=== PATIENT | male | born 1945 | race Caucasian/White ===

== ENCOUNTER → 2016-12-09 | Outpatient (CLI) | payer MEDICARE ==
[2016-12-09 14:02] LABS: CH 31.2; HCT 43.7 % (39.0-53.0); HDW 2.87; HGB 14.5 gm/dL (13.0-17.5); MCH 30.6 pg (25.0-35.0); MCHC 33.1 g/dL (31.0-37.0); MCV 92.4 fL (80.0-100.0); Mean Platelet Volume 7.3; RBC 4.73 m/uL (4.30-5.90); RDW 12.9 % (11.5-15.5)
[2016-12-09 14:07] LABS: Partial Thromboplastin Time 24.1 sec (22.0-30.0); Prothrombin Time 9.8 sec (9.0-12.0)
[2016-12-09 14:13] LABS: Appearance,Urine Clear (Clear); Bilirubin,Urine Negative (Negative); Glucose,Urine (UA) Negative (Negative); Ketones,Urine Negative (Negative); Leukocyte Esterase,Urine Negative (Negative); Nitrite,Urine Negative (Negative); PH, Urine 6.5 (5.0-8.0); Protein,Urine Negative (Negative); Specific Gravity,Urine 1.009 (1.001-1.035); UA Billing (MACRO vs. MICRO) CHEM; Urobilinogen,Urine <2.0 mg/dL (<2.0)
[2016-12-09 14:29] LABS: ALT 37 U/L (21-72); AST 23 U/L (17-59); Alkaline Phosphatase 68 U/L (38-126); Anion Gap 12 mmol/L; Blood Urea Nitrogen 16 mg/dL (9-20); Calcium 9.6 mg/dL (8.4-10.2); Carbon Dioxide 26 mmol/L (22-30); Chloride 103 mmol/L (98-107); Glucose 86 mg/dL (74-99); Non-African American GFR(MDRD) >60 (>60 ml/min/1.73 sqM); Potassium 4.6 mmol/L (3.5-5.1); Sodium 141 mmol/L (137-145); Total Bilirubin 0.7 mg/dL (0.2-1.3); Total Protein 7.3 g/dL (6.3-8.2)
== END | disposition home or self-care (01) ==
LOC: LABPAT 12:51
PROVIDERS: ATTEND Orthopaedic Surgery
DX: Z01.810 Encounter for preprocedural cardiovascular examination (principal); Z01.812 Encounter for preprocedural laboratory examination
CPT/HCPCS: 80053; 81003; 85027; 85610; 85730; 87070

== ENCOUNTER 2017-12-07 06:05 | Day surgery (SDC) | payer MEDICARE ==
[2017-12-05 09:37] VITALS: BMI 29.8
[~2017-12-07 06:05] MED LIST: DEXAMETHASONE SOD PHOSPHATE 10 MG/ML 1 ML VIAL IV ONE; FAMOTIDINE 20 MG/2 ML VIAL IV ONE; LIDOCAINE 1% 20 ML VIAL (10MG/ML) FOR IV START INTRADERMA PRN; MIDAZOLAM 2 MG/2 ML VIAL IV PRN; ONDANSETRON 4 MG/2 ML VIAL IVP ONE; ceFAZolin 1,000 MG in EMPTY BAG 1 BAG IV ONE; fentaNYL (PF) 50 MCG/ML 2 ML AMP IV PRN
[2017-12-07] MEDS ORDERED: LACTATED RINGERS 1,000 ML IV SCH (06:15)
[2017-12-07] MEDS: OXYMETAZOLINE 0.05% NASL SPRAY 1 SPRAY BOTTLE NASAL ONE ×5 (06:36→07:05)
[2017-12-07 06:40] VITALS: TEMP 97.6
[2017-12-07 07:33] LABS: Anion Gap 9 mmol/L; Blood Urea Nitrogen 12 mg/dL (9-20); Calcium 9.4 mg/dL (8.4-10.2); Carbon Dioxide 28 mmol/L (22-30); Chloride 107 mmol/L (98-107); Glucose 110 mg/dL (74-99); Potassium 4.2 mmol/L (3.5-5.1); Sodium 144 mmol/L (137-145)
[2017-12-07] MEDS ORDERED: fentaNYL (PF) 50 MCG/ML 2 ML AMP ONE (07:36)
[2017-12-07] MEDS ORDERED: ePHEDrine SULFATE/0.9% NACL/PF 50 MG/5 ML SYRINGE IV ONE (07:36)
[2017-12-07] MEDS ORDERED: MIDAZOLAM 2 MG/2 ML VIAL ONE (07:36)
[2017-12-07] MEDS ORDERED: PROPOFOL 10 MG/ML 20 ML VIAL IV ONE (07:36)
[2017-12-07] MEDS ORDERED: ceFAZolin 1,000 MG VIAL ONE (07:36)
[2017-12-07] MEDS ORDERED: DEXAMETHASONE SOD PHOS (MDV) 100 MG/10 ML VIAL ONE (07:36)
[2017-12-07] MEDS ORDERED: LIDOCAINE 1% INJ 10MG/ML (20 ML MDV) ONE (07:36)
[2017-12-07] MEDS ORDERED: SUCCINYLCHOLINE CHLORIDE 100 MG/5 ML SYR IV ONE (07:36)
[2017-12-07] MEDS ORDERED: BUPIVACAIN-EPI 0.5%-1:200,000 30 ML VIAL SQ ONE ×2 (08:00)
[2017-12-07] MEDS ORDERED: EPINEPHrine 1 MG/ML (MDV) 30 ML VIAL TOPICAL ONE (08:00)
[2017-12-07] MEDS ORDERED: LIDOCAINE 1%-EPI 1:100,000 20 ML VIAL SQ ONE ×2 (08:00)
[2017-12-07] MEDS ORDERED: FLUORESCEIN STRIPS 1 MG STRIP MISCELLANE ONE (08:00)
--- NOTE | 2017-12-07 09:37 | P.OP ---
Date of Procedure: 12/07/17 Preoperative Diagnosis: Deviated nasal septum Bilateral hypertrophy of inferior nasal turbinates with obstruction Chronic pansinusitis Sinonasal polyposis Postoperative Diagnosis: Same Procedure(s) Performed: Septoplasty Bilateral submucosal resection of the inferior turbinates with outfracturing compression Bilateral functional endoscopic sinus surgery of all sinuses with polypectomy and intranasal polypectomy Anesthesia: MCKINLEY Surgeon: Yesenia Lowe Estimated Blood Loss (ml): 40 Pathology: other (Sinonasal) Condition: stable Disposition: PACU Indications for Procedure: This patient presented to the office with multiple and long-standing sinonasal symptoms. He has chronic pansinusitis with polyps and left septal deviation. He has complaints of discolored postnasal drainage, total anosmia, facial pain and pressure, discolored drainage, etc. etc. He has failed medical therapy and is yellow drainage is persistent. His problems have been going on for years and has failed medical therapy. CAT scan evaluation confirms chronic pansinusitis. This is a medical failure and after long discussion we decided to proceed forward with this septoplasty turbinate surgery and bilateral functional endoscopic sinus surgery and polypectomy. All risks, benefits, and alternative therapies were discussed. Consent was obtained and all questions were answered. Operative Findings: Massive intranasal edema with a left septal deviation and sinonasal polyposis throughout all sinuses with yesenia pus and thick and viscous secretions removed. All sinuses were infected and had polyposis. Description of Procedure: This patient was taken to the operative room and placed in the supine position. A general inhalation anesthetic was administered to the patient by the department of anesthesia with a functioning IV line in place. The patient was monitored throughout the entire case by the department of anesthesia. The eyes were taped shut for protection. The patient was placed in a slight reverse Trendelenburg position. The patient had previously utilize Afrin nasal spray preoperatively. The nose was evaluated and the septum lateral nasal wall and inferior turbinates were injected with lidocaine 1% with epinephrine 1 100,000 bilaterally. Approximately 10 minutes were allowed wait for full vasoconstrictive effects to take place. At this point a caudal incision was made over the caudal portion of the left septum down to the mucoperichondrium. A mucoperichondrial flap was elevated on the left side and dissection was carried with use of tunnels posteriorly. We then made a crossover incision through the cartilage to the contralateral side and for the mucoperichondrial flap development was performed to the extent of visualization on the contralateral side. After the cartilage was freed with use of several crosshatching incisions and removal of some redundant strips of septal cartilage, the septum was straightened and placed back in the midline. The septum was sutured fixated to the ovarian groove. Excellent straightening occurred and the septum was visibly straight. Incision was closed with a 40 rapid Vicryl. We utilized a running nonlocking fashion for closure of the incision. A quilting stitch was used to reapproximate the septal flaps with use of a 40 rapid Vicryl. We then entered the nose with a 0 and 30 Anderson pacheco endoscope. Previous to this we did inject the lateral nasal wall and middle turbinate and uncinate process with lidocaine 1% with epinephrine 1 100,000. Approximately 10 minutes were allowed wait for full vasoconstrictive effects to take place. Intranasal polyps were noted. They were noted bilaterally. The intranasal polyps were removed with use of a microdebrider. With use of a microdebrider and a pediatric backbiter, we took down the uncinate process bilaterally. We then opened the maxillary sinuses bilaterally. We utilized a microdebrider for this and entered the maxillary sinuses and removed diseased tissue and polypoid tissue. This was done bilaterally. After the maxillary sinuses were opened and the diseased tissue and polyps were removed we entered the ethmoid bulla and with use of a microdebrider and up-biting Deon, we remove the anterior septations and remove diseased tissue from the anterior ethmoids with direct visualization. We then followed the fovea frontalis through the basal lamella and into the posterior ethmoid air cells and did a total ethmoidectomy with removal of polypoid material. Once the ethmoids cells were all taken down we then entered the sphenoid sinus medially and inferiorly underneath the inferior attachment of the superior turbinate. The sphenoid sinus was opened entered and diseased tissue and polyps were removed bilaterally. This was done with a microdebrider and Blakesley. We then entered the frontal sinuses with a giraffe and up-biting Blakesley entered on the agar nasi cells. We open the frontal sinuses and removed sinus tissue and polypoid tissue that was diseased. We explored the frontal sinuses bilaterally. To summarize all sinuses were open all sinuses were explored and we remove diseased tissue and polyps from the sphenoid maxillary and frontal sinuses. Polyps were removed from the nose. Ethmoid sinuses were opened totally. Surgicel powder was inserted and minimal bleeding was encountered. We reinspected the skull base there is no signs of any orbital penetration or signs of any intracranial penetration. The sugical site was reinspected after the nasal pore was placed and no bleeding was seen. Attention was then paid to the inferior turbinates. The bilateral inferior turbinates were hypertrophic and obstructive. We entered the anterior portion of the inferior turbinates with use of a microdebrider. We remove bone and submucosal elements with use of a microdebrider bilaterally. The inferior turbinates underwent a submucosal resection with removal of submucosal tissue and bone. We obtained a much better and normal in size for breathing. The inferior turbinates were then outfractured and compressed with a [employer] nasal elevator. Excellent airway was obtained and was symmetric bilaterally. No bleeding was encountered. Intranasal splints were inserted and fixated at the end of the case. We utilized Daley nasal splints. There will be removed and the patient returns to the office.
[2017-12-07] MEDS ORDERED: LACTATED RINGERS 1,000 ML IV ONE ×2 (09:45)
[2017-12-07] MEDS ORDERED: hydrALAZINE HCL 20 MG/ML 1 ML VIAL IVP ONE (09:50)
[2017-12-07] MEDS ORDERED: HYDROcodone/APAP 5-325MG 1 EACH TAB PO ONE (11:04)
[2017-12-07 12:43] VITALS: BP 157/78; PULSE 73; RESP 20
== END 2017-12-07 12:46 | disposition home or self-care (01) ==
LOC: OR 06:05
PROVIDERS: ATTEND Otolaryngology
DX: J32.4 Chronic pansinusitis (principal); J34.2 Deviated nasal septum; J34.3 Hypertrophy of nasal turbinates; J33.8 Other polyp of sinus; J43.9 Emphysema, unspecified; Z85.46 Personal history of malignant neoplasm of prostate; I10 Essential (primary) hypertension; I42.2 Other hypertrophic cardiomyopathy; E11.9 Type 2 diabetes mellitus without complications; Z79.82 Long term (current) use of aspirin; Z79.2 Long term (current) use of antibiotics; Z79.891 Long term (current) use of opiate analgesic; Z79.51 Long term (current) use of inhaled steroids; Z79.52 Long term (current) use of systemic steroids; Z79.899 Other long term (current) drug therapy; Z88.8 Allergy status to other drugs, medicaments and biological substances
CPT/HCPCS: 88305; 80048; 88300; 30520; 31267; 31253; 31259; 30140; J0171; J2250; J0360; J2405; J0690; J2001; J3010; J1100; J0330; J2704

== ENCOUNTER → 2024-04-05 | Outpatient (CLI) | payer MEDICARE ==
[2024-04-05 12:43] LABS: Partial Thromboplastin Time 22.9 sec (22.0-30.0)
[2024-04-05 15:32] LABS: ALT 13 U/L (10-49); AST 16 U/L (14-35); Albumin 4.1 g/dL (3.8-4.9); Albumin/Globulin Ratio 1.58 Ratio (1.60-3.17); Alkaline Phosphatase 70 U/L (41-126); BUN/Creat Ratio 16.88 Ratio (12.00-20.00); Blood Urea Nitrogen 13.5 mg/dL (9.0-27.0); Calcium 9.5 mg/dL (8.7-10.3); Carbon Dioxide 26.9 mmol/L (21.6-31.8); Chloride 103 mmol/L (96-109); Globulin 2.6 g/dL (1.6-3.3); Glucose 89 mg/dL (70-110); Potassium 4.1 mmol/L (3.5-5.5); Sodium 141 mmol/L (135-145); Total Bilirubin 0.7 mg/dL (0.3-1.2); Total Protein 6.7 g/dL (6.2-8.2)
[2024-04-05 16:10] LABS: INR 0.9 (<1.2); Prothrombin Time 10.1 sec (10.0-12.5)
[2024-04-05 16:55] LABS: HCT 38.4 % (39.6-50.0); HGB 12.8 g/dL (13.0-17.0); MCH 30.5 pg (27.0-32.0); MCHC 33.3 g/dL (32.0-37.0); MCV 91.4 FL (80.0-97.0); Mean Platelet Volume 11.1 FL (9.5-12.2); NRBC Per 100 WBC 0 X 10*3/uL (0.00-0.01); Platelet Count 200 X 10*3/uL (140-440); RDW 12.5 % (11.5-14.5)
== END | disposition home or self-care (01) ==
LOC: LABPAT 11:35
PROVIDERS: ATTEND Orthopaedic Surgery
DX: Z01.818 Encounter for other preprocedural examination (principal); Z22.322 Carrier or suspected carrier of Methicillin resistant Staphylococcus aureus; M16.11 Unilateral primary osteoarthritis, right hip
CPT/HCPCS: 80053; 85027; 85610; 85730; 86850; 86900; 86901; 87070; 93005

== ENCOUNTER 2024-04-15 05:37 | Day surgery (SDC) | payer MEDICARE ==
[~2024-04-15 05:37] MED LIST changes: -DEXAMETHASONE SOD PHOSPHATE 10 MG/ML 1 ML VIAL IV ONE; -FAMOTIDINE 20 MG/2 ML VIAL IV ONE; -LIDOCAINE 1% 20 ML VIAL (10MG/ML) FOR IV START INTRADERMA PRN; -MIDAZOLAM 2 MG/2 ML VIAL IV PRN; -ONDANSETRON 4 MG/2 ML VIAL IVP ONE; +TRANEXAMIC 1,000 MG/100ML-NACL 1,000 MG in SALINE 1 100ML.BAG IVPB PRN; -ceFAZolin 1,000 MG in EMPTY BAG 1 BAG IV ONE; -fentaNYL (PF) 50 MCG/ML 2 ML AMP IV PRN
[2024-04-15] MEDS: IV FLUID CONTINUATION 1,000 ML IV ONE (05:58)
[2024-04-15 06:25] LABS: Glucose,Whole Blood 125 mg/dL (70-110)
[2024-04-15] MEDS: LACTATED RINGERS 1,000 ML IV SCH (06:32)
[2024-04-15] MEDS: ACETAMINOPHEN TAB 500 MG TAB PO PRN (06:32)
[2024-04-15] MEDS: GABAPENTIN 300 MG CAP PO PRN (06:32)
[2024-04-15] MEDS: MELOXICAM 7.5 MG TAB PO PRN (06:32)
[2024-04-15] MEDS: MIDAZOLAM 2 MG/2 ML VIAL IV PRN (06:34)
[2024-04-15] MEDS: ONDANSETRON 4 MG/2 ML VIAL IVP ONE (06:38)
[2024-04-15] MEDS ORDERED: fentaNYL (PF) 50 MCG/ML 2 ML AMP ONE (06:52)
[2024-04-15] MEDS ORDERED: PHENYLEPHRINE-0.9% NACL SYG 1,000 MCG/10 ML SYRINGE ONE (06:52)
[2024-04-15] MEDS ORDERED: ROPIVACAINE 5 MG/ML 30 ML VIAL ONE (06:52)
[2024-04-15] MEDS ORDERED: PROPOFOL 10 MG/ML 20 ML VIAL IV ONE (06:52)
[2024-04-15] MEDS ORDERED: MIDAZOLAM 2 MG/2 ML VIAL ONE (06:52)
[2024-04-15] MEDS: ceFAZolin 1,000 MG in SODIUM CHLORIDE 0.9% 1,000 ML IRRIGATION ONE (06:57)
--- NOTE | 2024-04-15 07:12 | P.ANPRN ---
Procedure Note - Anesthesia - Nerve Block Performed Right Gaetano Single Time Out Performed: Yes Date of Procedure: 04/15/24 Procedure Start Time: 06:33 Procedure Stop Time: 06:38 Location of Patient: PreOp Indication: Acute Post-Operative Pain, Analgesia, Requested by Surgeon Sedation Type: Sedate with meaningful contact maintained Position: Supine Catheter: None Needle Types: Pajunk Needle Gauge: 21 Ultrasound used to visualize needle placement: Yes Ultrasound used to observe medication spread: Yes Injectate: 0.5% Ropivacaine (see comment for volume) (Ropiv 20ml) Blood Aspirated: No Pain Paresthesia on Injection Noted: No Resistance on Injection: Normal Image Stored and Saved: Yes Events: Uneventful and Well Tolerated
[2024-04-15] MEDS: ROPIVACAINE 5 MG/ML 30 ML VIAL MISCELLANE ONE ×2 (07:40→08:18)
--- NOTE | 2024-04-15 08:26 | P.OP ---
Date of Procedure: 04/15/24 Preoperative Diagnosis: Severe osteoarthritis, right hip Postoperative Diagnosis: Severe osteoarthritis, right Procedure(s) Performed: Right total hip arthroplasty with a direct anterior approach Implants: [employer] Polarstem standard size 3 with a collar [employer] R3, 3 hole hemispherical acetabular shell, 58 mm [employer] Reflection 6.5 mm cancellus screws, 20 mm, 25 mm [employer] R3, XLPE 20 acetabular liner [employer]hew Oxinium femoral head 36 mm, +0 All components were press-fit. The articulation is Oxinium on polyethylene. Anesthesia: spinal Surgeon: Ivan Jaramillo Steel Engraver #1: Jaky Beltran Estimated Blood Loss (ml): 250 Pathology: none sent Condition: stable Disposition: PACU Indications for Procedure: After failure of conservative treatment we discussed the surgical and no nsurgical treatment options at length. Patient wishes to proceed with a total hip arthroplasty with a direct anterior approach. Complications specific to this procedure were discussed at length, including but not limited to infection, leg length discrepancy, dislocation, nerve injury, and fracture. Covid-19 was also discussed at length with the patient, and they are aware of the current policies and procedures. The patient was given the option of delaying surgery, but they elect to proceed knowing these risks. Patient is aware of all these complications and informed consent was obtained Operative Findings: The operative findings are consistent with severe osteoarthritis of the right hip Description of Procedure: The patient was seen and evaluated in the preoperative area and the consent was reviewed. The operative site was marked with a skin marker. The patient verified the procedure and operative site. A AUSTEN block was placed by anesthesia in the preoperative area. The patient was then brought to the operating room and given preoperative antibiotics intravenously. 1 g of Tranexamic acid was also given intravenously. A spinal anesthetic was administered by the anesthesia department. The patient was then placed on the Afton table with the bony prominences well-padded. The hip area was then prepped with a ChloraPrep solution and draped in the usual sterile fashion. A universal timeout was then performed, which confirmed the patient's name, surgical site, ALLERGIES, and procedure being performed on the consent. Next the incision site was located at 1 cm distal and 4 cm lateral to the anterior superior iliac spine. The skin and subcutaneous tissues were sharply incised. Incision was carefully dissected down to the fascia overlying the tensor fascia kenzie muscle. This fascia was then incised in line with the muscle fibers. Care was taken to stay laterally in order to avoid injuring the lateral femoral cutaneous nerve. Next, using blunt finger dissection, the tensor fascia kenzie muscle was dissected off its investing fascia. The muscle was then carefully retracted laterally with a cobra retractor over the lateral neck of the femur. Next, the circumflex vessels were identified and cauterized using the Aquamantis device. The anterior hip capsule was then exposed. The capsule was then opened and an inverted T fashion. The retractors were then placed intracapsularly. The retractors were maintained intracapsular throughout the procedure. The proximal femur was then visualized. Fluoroscopic x-rays were then taken in order to evaluate the preoperative leg lengths. A small amount of traction was placed on the leg. The femoral neck was then osteotomized at the appropriate level above the lesser trochanter. A small wedge of bone was then removed from the remaining femoral head. Next, using a corkscrew the femoral head was removed from the acetabulum. On gross visual inspection, the femoral head had complete loss of articular cartilage and multiple periarticular osteophytes. The femoral head was then measured. Attention was then turned to the acetabulum. The acetabulum was exposed and any remaining labrum was excised. Sequential reaming of the acetabulum was performed using fluoroscopic guidance until there was a good bed of bleeding cancellus bone. When the appropriate size was reached, a trial was then placed. The position and fit of the trial was checked with fluoroscopy. The trial was then removed. Then, using fluoroscopic guidance, the final implant was impacted at 20 of anteversion and 40 of abduction, and fully seated in the acetabulum. 2 screws were then placed in the acetabulum. Again fluoroscopy was used to check position of the screws. Next, the liner was then impacted, with a 20 elevated liner located in the anterior superior quadrant. Component locking was confirmed. Attention was then directed to the femur. With the aid of the Afton table, the femur was externally rotated to approximately 130, extended, and adducted under the opposite leg. A side hook was then placed under the proximal femur, and the side hook elevator was used to elevate the proximal femur while releasing the capsule. Retractors were then placed. A capsular release was performed, as well as a release of the conjoined tendon, which afforded excellent visualization of the proximal femur. Next, a box osteotome was used to lateralize the proximal femur. A handkerchief sample clerk was then used to locate the femoral canal. Sequential broaching was then performed with appropriate size which afforded excellent fixation in the proximal femur. A trial was then placed with appropriate head and neck, and the hip was gently reduced with the aid of the Afton table. Fluoroscopy was then used to check position of the components, as well as to evaluate the leg lengths and offset. The leg lengths and offset were measured as closely as possible to ensure stability of the hip. The hip was then gently dislocated and the trials were then removed. Final implants were then impacted and the hip was again reduced. Final fluoroscopic x-rays confirmed that the components were in anatomic position. The leg lengths and offset were measured and were found to coincide with the trial measurements. The hip was also taken through range of motion, and found to be stable. The hip was then copiously irrigated with antibiotic solution with pulsatile lavage. The hip was then irrigated with Irrisept solution. The soft tissues were then injected with a ropivacaine solution. A second dose of 1 g of Tranexamic acid was also given intravenously. The fascia was then closed with 2-0 strata fix suture. The subcutaneous tissue was closed with 3-0 Vicryl. The subcuticular tissue was closed with 3-0 moncryl suture. The skin was then closed with Exofin skin glue. After the glue and dried, and Optifoam silver impregnated dressing was applied. The patient was t hen transferred to the recovery room in stable condition. The tmd teacher assistant UZIEL Cobian was required due to the complexity of surgery, and the need for skilled program support assistant for positioning, draping, exposure, retraction, and closure of the wound.
[2024-04-15] MEDS: LACTATED RINGERS 1,000 ML IV ONE (08:33)
--- NOTE | 2024-04-15 08:37 | XR ---
Intraoperative/procedural fluoroscopic services were provided for right total hip arthroplasty. Total fluoroscopy time is 25.5 seconds with a total of 4 submitted images to PACS. Total DAP 1.2833 Gycm2. Please see the operative note for further details. [facility], , 04/15/2024 8:35 AM
[2024-04-15] MEDS ORDERED: NALOXONE 0.4 MG/ML 1 ML VIAL IV PRN (08:51)
[2024-04-15] MEDS ORDERED: ONDANSETRON 4 MG/2 ML VIAL IVP PRN (08:51)
[2024-04-15] MEDS ORDERED: MAGNESIUM HYDROXIDE 2,400 MG/30 ML CUP PO PRN (08:51)
[2024-04-15] MEDS ORDERED: HYDROmorphone 0.5 MG/0.5 ML SYRINGE IVP PRN ×2 (08:51)
[2024-04-15] MEDS ORDERED: HYDROcodone/APAP 7.5-325MG 1 EACH TAB PO PRN (08:55)
--- NOTE | 2024-04-15 09:17 | XR ---
EXAMINATION TYPE: XR Hip Limited RT DATE OF EXAM: 04/15/2024 9:13 AM INDICATION: Patient age:Male; 78 years old; Reason for study: Status post hip surgery, assess surgical alignment; PHH. COMPARISON: Right hip fluoroscopic images of the same date TECHNIQUE: The right hip was examined in the single frontal projection. FINDINGS: Post surgical changes from total right hip arthroplasty. Hardware appears intact with appro priate alignment on this single frontal image. There is surrounding soft tissue gas and edema related to surgery. Vascular sclerosis demonstrated. No acute fracture or dislocation. IMPRESSION: Postsurgical changes from total right hip arthroplasty. Hardware appears intact with appropriate alig nment. [facility], , 04/15/2024 9:15 AM
[2024-04-15] MEDS: HYDROmorphone 0.5 MG/0.5 ML SYRINGE IVP PRN ×2 (10:24→13:22)
[2024-04-15] MEDS: SODIUM CHLORIDE 0.9% 1,000 ML IV SCH (13:21)
[2024-04-15] MEDS ORDERED: MONTELUKAST 10 MG TAB PO PRN (14:22)
[2024-04-15] MEDS ORDERED: FUROSEMIDE 40 MG TAB PO PRN (14:22)
[2024-04-15] MEDS ORDERED: ALBUTEROL NEBULIZED 2.5 MG/3 ML INHALATION PRN (14:22)
[2024-04-15] MEDS ORDERED: DEXTROSE 50% SYRINGE 50 ML IVP PRN ×2 (14:23)
[2024-04-15] MEDS: HYDROcodone/APAP 7.5-325MG 1 EACH TAB PO PRN (16:32)
[2024-04-15 16:44] LABS: Glucose,Whole Blood 160 mg/dL (70-110)
[2024-04-15] MEDS: INSULIN ASPART (NovoLOG) 100 UNIT/ML VIAL SQ SCH (17:28)
[2024-04-15] MEDS: metFORMIN 500 MG TAB PO SCH (17:28)
[2024-04-15] MEDS: NIFEdipine XL 30 MG TAB.ER.24 PO SCH (17:28)
[2024-04-15] MEDS: METOPROLOL TARTRATE 50 MG TAB PO SCH (20:35)
[2024-04-15] MEDS: ASPIRIN 325 MG TAB PO SCH (20:35)
[2024-04-15] MEDS: POTASSIUM CHLORIDE ER 10 MEQ TAB.ER.PRT PO SCH (20:36)
[2024-04-15] MEDS: CHOLECALCIFEROL 25 MCG (1000 IU) TABLET PO SCH (20:36)
[2024-04-15] MEDS: SENNOSIDES-DOCUSATE SODIUM 1 EACH TAB PO SCH (20:36)
[2024-04-15] MEDS: SYMBICORT 160-4.5 MCG INHALER INHALATION SCH (20:43)
[2024-04-15 21:02] LABS: Glucose,Whole Blood 175 mg/dL (70-110)
[2024-04-15] MEDS: BETAMETHASONE DIPROPIONATE 0.05% OINTMENT 45 GM TUBE TOPICAL SCH (21:47)
--- NOTE | 2024-04-16 01:00 | CONS ---
CONSULTATION REASON FOR CONSULTATION: Advice regarding COPD and CAD, and other medical issues, requested by Orthopedics. HISTORY OF PRESENT ILLNESS: This is a 78-year-old gentleman with a past history of COPD, diabetes mellitus, hypertension, hyperlipidemia, being followed by in the outpatient setting. The patient underwent right total hip joint arthroplasty. There is no history of any fever, rigors, or chill. No history of headache, loss or consciousness, or seizures at this time. PAST MEDICAL HISTORY: Reviewed include diabetes mellitus, COPD. Rest of the history and rest of the chart is also reviewed. HOME MEDICATIONS: Reviewed include Requip. Dose and rest of medications reviewed. ALLERGIES: Prednisone. FAMILY HISTORY: History of borderline diabetes. SOCIAL HISTORY: No history of smoking or alcohol. REVIEW OF SYSTEMS: Fourteen-point review of systems is negative except as mentioned earlier. PHYSICAL EXAMINATION: VITAL SIGNS: Pulse 58, blood pressure 148/70, respirations 16. HEENT: Conjunctivae normal. NECK: No JVD. CARDIOVASCULAR: S1, S2. RESPIRATIONS: Breath sounds diminished at the bases. No rhonchi. No crackles. ABDOMEN: Soft. LEGS: Status post surgery. NERVOUS SYSTEM: Nonfocal. LABORATORY DATA: Glucose 125. ASSESSMENT: 1. Status post right hip arthroplasty. 2. Diabetes mellitus, type 2. 3. Chronic obstructive pulmonary disease. 4. Coronary artery disease. 5. Hypertension. 6. Multiple medical issues. 7. History of hypertrophic cardiomyopathy. RECOMMENDATIONS AND DISCUSSION: This is a 78-year-old gentleman presented with multiple complex medical issues, we will monitor the patient closely. The patient is currently medically stable. Recommend to resume the home medications. Monitor blood sugars closely. DVT prophylaxis. Pain management. We will continue to monitor. Further recommendations to follow. MMODL / IJN: [id number] / MTDD
[2024-04-16 01:39] VITALS: RESP 18
[2024-04-16 06:20] LABS: Glucose,Whole Blood 143 mg/dL (70-110)
[2024-04-16 07:51] VITALS: BP 144/67; PULSE 74; TEMP 99.9
[2024-04-16] MEDS: ATORVASTATIN 10 MG TAB PO SCH (08:37)
[2024-04-16] MEDS: MAGNESIUM OXIDE 400 MG TAB PO SCH (08:37)
[2024-04-16] MEDS: FERROUS SULFATE 325 MG TAB PO SCH (08:37)
[2024-04-16] MEDS: LOSARTAN-HCTZ 50-12.5 MG 1 EACH TAB PO SCH (08:38)
[2024-04-16 08:41] LABS: Basophils # (A) 0.04 X 10*3/uL (0.00-0.10); Basophils % (A) 0.5 %; Eosinophils # (A) 0.08 X 10*3/uL (0.04-0.35); HGB 10.9 g/dL (13.0-17.0); Lymphocytes # (A) 0.66 X 10*3/uL (0.90-5.00); Lymphocytes % (A) 8.5 %; MCH 30.2 pg (27.0-32.0); MCV 91.4 FL (80.0-97.0); Mean Platelet Volume 11.2 FL (9.5-12.2); Monocytes # (A) 0.87 X 10*3/uL (0.20-1.00); Monocytes % (A) 11.2 %; NRBC Per 100 WBC 0 X 10*3/uL (0.00-0.01); Neutrophils # (A) 6.08 X 10*3/uL (1.80-7.70); Neutrophils % (A) 78.5 %; Platelet Count 173 X 10*3/uL (140-440); RBC 3.61 X 10*6/uL (4.40-5.60); RDW 12.5 % (11.5-14.5); WBC 7.75 X 10*3/uL (4.50-10.00)
--- NOTE | 2024-04-16 09:11 | P.DS ---
Providers Expected date of discharge: 04/16/24 Attending physician: Ivan Jaramillo Consults: 04/15/24 08:51 Consult Physician Routine Consulting Provider: Daiana Patel Consult Reason/Comments: medical management Do you want consulting provider notified?: Yes Primary care physician: Josue Chung - Discharge Diagnosis(es) (1) Osteoarthritis of right hip Current Visit: Yes Status: Acute (2) S/P total hip arthroplasty Current Visit: Yes Status: Acute Hospital Course: This is a 78-year-old male with known history of degenerative arthritis of the right hip. The patient presented for evaluation as an outpatient. After discussion and consideration patient elects to proceed with total hip arthroplasty. The patient is seen preoperatively by Dr. Jaramillo and medically cleared for surgery by their primary care physician. Patient is admitted to [facility] on 04/15/2024 for total hip arthroplasty. The procedure is performed without complication or sequelae. The patient is doing well postoperatively. Labs and vital signs are stable on day of discharge. On day of discharge patient's hip incision is healing well. There is minimal erythema. There is no drainage noted at this time. There is minimal soft tissue swelling to the hip and thigh. Patient has full foot and ankle motion without difficulty or pain. Calf is soft and nontender to palpation. Neurovascular status to the right lower extremity is intact. Patient is discharged home in good condition. Please see med rec for accurate list of home medications. Plan - Discharge Summary Discharge Rx Participant: No New Discharge Prescriptions: New HYDROcodone/APAP 7.5-325MG [Neponset 7.5-325] 1 - 2 tab PO Q6H PRN #32 tab PRN Reason: Pain Aspirin 325 mg PO BID #60 tab Sennosides [Senokot] 2 tab PO DAILY PRN #60 tablet PRN Reason: Constipation No Action Cholecalciferol [Vitamin D3 (25 Mcg = 1000 Iu)] 1,000 unit PO BID Albuterol Sulfate [Proair Hfa] 4 puff INHALATION RT-Q6H PRN PRN Reason: sob Montelukast Sodium [Singulair] 10 mg PO DAILY PRN PRN Reason: allergies Mometasone/Formoterol [Dulera 200 Mcg-5 Mcg Inhaler] 2 puff INHALATION RT-BID rOPINIRole HCL [Requip] 0.5 mg PO HS Vits A,C,E/Lutein/Minerals [Ocuvite with Lutein Tablet] 1 tab PO DAILY Potassium Chloride ER [K-Dur 10] 10 meq PO BID Furosemide [Lasix] 40 mg PO DAILY PRN PRN Reason: leg swelling Losartan/Hydrochlorothiazide [Hyzaar 100-25 Tablet] 1 tab PO DAILY glipiZIDE XL [Glucotrol Xl] 5 mg PO DAILY PRN PRN Reason: "high blood sugar" Metoprolol Tartrate [Lopressor] 100 mg PO BID Atorvastatin [Lipitor] 10 mg PO DAILY metFORMIN HCL ER [Glucophage XR] 500 mg PO BID Ferrous Sulfate [Feosol] 325 mg PO DAILY NIFEdipine [Adalat CC] 30 mg PO AC-SUPPER Magnesium 250 mg PO DAILY Aspirin [Adult Low Dose Aspirin EC] 81 mg PO DAILY Betamethasone Dipropionate [Betamethasone Diprop Augm Gel 0.05%] 1 applic NASAL HS Discharge Medication List Albuterol Sulfate [Proair Hfa] 4 puff INHALATION RT-Q6H PRN 12/29/16 [History] Cholecalciferol [Vitamin D3 (25 Mcg = 1000 Iu)] 1,000 unit PO BID 12/29/16 [History] Mometasone/Formoterol [Dulera 200 Mcg-5 Mcg Inhaler] 2 puff INHALATION RT-BID 12/29/16 [History] Montelukast Sodium [Singulair] 10 mg PO DAILY PRN 12/29/16 [History] Potassium Chloride ER [K-Dur 10] 10 meq PO BID 12/29/16 [History] Vits A,C,E/Lutein/Minerals [Ocuvite with Lutein Tablet] 1 tab PO DAILY 12/29/16 [History] rOPINIRole HCL [Requip] 0.5 mg PO HS 12/29/16 [History] Furosemide [Lasix] 40 mg PO DAILY PRN 12/05/17 [History] Aspirin [Adult Low Dose Aspirin EC] 81 mg PO DAILY 04/09/24 [History] Atorvastatin [Lipitor] 10 mg PO DAILY 04/09/24 [History] Betamethasone Dipropionate [Betamethasone Diprop Augm Gel 0.05%] 1 applic NASAL HS 04/09/24 [History] Ferrous Sulfate [Feosol] 325 mg PO DAILY 04/09/24 [History] Losartan/Hydrochlorothiazide [Hyzaar 100-25 Tablet] 1 tab PO DAILY 04/09/24 [History] Magnesium 250 mg PO DAILY 04/09/24 [History] Metoprolol Tartrate [Lopressor] 100 mg PO BID 04/09/24 [History] NIFEdipine [Adalat CC] 30 mg PO AC-SUPPER 04/09/24 [History] glipiZIDE XL [Glucotrol Xl] 5 mg PO DAILY PRN 04/09/24 [History] metFORMIN HCL ER [Glucophage XR] 500 mg PO BID 04/09/24 [History] Aspirin 325 mg PO BID #60 tab 04/15/24 [Rx] HYDROcodone/APAP 7.5-325MG [Neponset 7.5-325] 1 - 2 tab PO Q6H PRN #32 tab 04/15/24 [Rx] Sennosides [Senokot] 2 tab PO DAILY PRN #60 tablet 04/15/24 [Rx] Follow up Appointment(s)/Referral(s): Ivan Jaramillo DO [Doctor of Osteopathic Medicine] - 2 Weeks Activity/Diet/Wound Care/Special Instructions: Weightbearing as tolerated with walker. Leave dressing intact. Dressing may be removed by home care nurse or by patient in 7 days. Then change dressing twice daily until follow up. May shower with initial dressing intact and after removal. If dressing become saturated, please remove. Please take aspirin 325mg twice daily for 30 days to prevent blood clots. Recommend use of compression stockings daily until follow up to help prevent swelling and blood clots. May remove at night before sleeping. [facility] with [facility] 2 weeks and call with any questions or concerns, . Discharge Disposition: HOME WITH HOME HEALTH SERVICES
[2024-04-16 12:24] LABS: Glucose,Whole Blood 153 mg/dL (70-110)
--- NOTE | 2024-04-17 01:13 | PN ---
PROGRESS NOTE DATE OF SERVICE: 04/16/2024 SUBJECTIVE: This is a 78-year-old gentleman, who was admitted after right total hip joint arthroplasty, improving significantly. No chest pain. No palpitations. No fever. OBJECTIVE: VITAL SIGNS: Pulse is 74, blood pressure 140/62, respirations 18. CHEST: Clear to auscultation. CARDIOVASCULAR: S1, S2. ABDOMEN: Soft. NERVOUS SYSTEM: Nonfocal. LEGS: Status post surgery. LABORATORY DATA: Reviewed. Hemoglobin 10.9. ASSESSMENT: 1. Status post right total hip joint arthroplasty. 2. Diabetes mellitus, type 2. 3. Chronic obstructive pulmonary disease. 4. Coronary artery disease. 5. Hypertension. 6. Multiple medical issues. RECOMMENDATIONS AND DISCUSSION: Recommend to continue current management. Continue symptomatic treatment. Resume home medications. Follow with Primary. DVT prophylaxis and rest of medications per Orthopedic Surgery. MMODL / IJN: [id number] /
== END 2024-04-16 12:45 | disposition home health service (06) ==
LOC: OR 05:37 → 4SSUR 08:44 → OR 04-16 12:45
PROVIDERS: ATTEND Orthopaedic Surgery
DX: M16.11 Unilateral primary osteoarthritis, right hip (principal); G89.18 Other acute postprocedural pain; E11.9 Type 2 diabetes mellitus without complications; I10 Essential (primary) hypertension; J44.9 Chronic obstructive pulmonary disease, unspecified; Z79.84 Long term (current) use of oral hypoglycemic drugs; Z79.82 Long term (current) use of aspirin; Z79.51 Long term (current) use of inhaled steroids; I42.2 Other hypertrophic cardiomyopathy; I25.10 Atherosclerotic heart disease of native coronary artery without angina pectoris
CPT/HCPCS: 27130; 94640 ×2; 97161; 97166; 64999; 85025; 83036; 73501; C1776; J2250; J0690 ×2; J2405; J2795; J1171